=== PATIENT | male | born 1995 | race Caucasian/White ===

== ENCOUNTER 2017-09-24 10:23 | Inpatient (IN) | payer BC ==
[2017-09-24] MEDS: ONDANSETRON 4 MG INJ IV (13:52)
[2017-09-24] MEDS: SOD CHLORIDE 0.9% 1,000 ML IV ×3 (13:52→21:35)
[2017-09-24] MEDS: DICYCLOMINE 10 MG CAP PO (13:52)
[2017-09-24 13:58] LABS: ADD MAN DIFF? NO
[2017-09-24 14:02] LABS: WHITE BLOOD COUNT 10.6 10^3/ul (4.8-10.8)
[2017-09-24 14:02] LABS: BASOPHILS % 0.3 % (0.0-2.0); HEMATOCRIT 43.7 % (42.0-52.0); HEMOGLOBIN 15.2 g/dl (14.0-18.0); LYMPHOCYTES # 1.5 10^3/ul (0.8-2.9); LYMPHOCYTES % 14.5 % (18.0-55.0); MEAN CORPUSCULAR HEMOGLOBIN 29.4 pg (29.0-33.0); MEAN CORPUSCULAR HGB CONC 34.8 g/dl (32.0-37.0); MEAN CORPUSCULAR VOLUME 84.5 fl (72.0-104.0); MEAN PLATELET VOLUME 10.5 fl (7.4-10.4); MONOCYTE # 0.8 10^3/ul (0.3-0.9); MONOCYTES % 7.1 % (0.0-13.0); NEUTROPHIL # 8.2 10^3/ul (1.6-7.5); NEUTROPHILS % 77.6 % (30.0-74.0); PLATELET COUNT 187 10^3/UL (140-415); POSITIVE DIFF @See below; RED BLOOD COUNT 5.17 10^6/ul (4.70-6.10)
[2017-09-24 14:07] LABS: ADD UMIC YES; UR ASCORBIC ACID NEGATIVE (NEGATIVE); UR BILIRUBIN (Dip) NEGATIVE (NEGATIVE); UR BLOOD (Dip) 2+ mg/dL (NEGATIVE); UR CLARITY CLEAR (CLEAR); UR COLOR YELLOW (YELLOW); UR GLUCOSE (Dip) NEGATIVE (NEGATIVE); UR KETONES (Dip) TRACE mg/dL (NEGATIVE); UR LEUKOCYTE ESTERASE (Dip) NEGATIVE Leu/ul (NEGATIVE); UR MUCUS FEW /HPF (NONE SEEN); UR NITRITE (Dip) NEGATIVE (NEGATIVE); UR RBC 21 /HPF (0-5); UR SPECIFIC GRAVITY (Dip) 1.028 (1.003-1.030); UR TOTAL PROTEIN (Dip) 2+ mg/dl (NEGATIVE); UR UROBILINOGEN (Dip) NEGATIVE (NEGATIVE); UR WBC 3 /HPF (0-5)
[2017-09-24 14:23] LABS: ALANINE AMINOTRANSFERASE 32 IU/L (13-69); ALBUMIN 4.7 g/dl (3.3-4.9); ALKALINE PHOSPHATASE 48 IU/L (42-121); ANION GAP 17 (8-16); ASPARTATE AMINO TRANSFERASE 26 IU/L (15-46); BILIRUBIN,INDIRECT 0.2 mg/dl (0-1.1); BILIRUBIN,TOTAL 0.2 mg/dl (0.2-1.3); BLOOD UREA NITROGEN 9 mg/dl (7-20); CALCIUM 9.5 mg/dl (8.4-10.2); CARBON DIOXIDE 26 mmol/L (21-31); CHLORIDE 98 mmol/L (97-110); GLUCOSE 117 mg/dl (70-220); LIPASE 29 U/L (23-300); POTASSIUM 4.2 mmol/L (3.5-5.1); SODIUM 137 mmol/L (135-144); TOTAL PROTEIN 8.3 g/dl (6.1-8.1)
[2017-09-24 14:34] LABS: ANISOCYTOSIS 1+ (0-0); BAND NEUTROPHILS #M 3.1 10^3/ul (0.0-0.6); BAND NEUTROPHILS % (M) 30 % (0-10); EOSINOPHILS % (M) 1 % (0-7); GIANT THROMBO% (M) 1 % (0-0); LYMPHOCYTES #M 1.6 10^3/ul (0.8-2.9); LYMPHOCYTES % (M) 16 % (18-55); METAMYELOCYTES #M 0.2 10^3/ul (0.0-0.0); METAMYELOCYTES %M 2 % (0-0); MONOCYTE #M 0.4 10^3/ul (0.3-0.9); MONOCYTES % (M) 4 % (0-13); PLATELET ESTIMATE NORMAL; POLYCHROMASIA 1+ (0-0); SEGMENTED NEUTROPHILS (M) % 44 % (30-74); SMUDGE%M 4 % (0-0)
[2017-09-24] MEDS: ACETAMINOPHEN 325 MG TAB PO (15:38)
[2017-09-24 15:44] LABS: OCCULT BLOOD STOOL NEGATIVE (NEGATIVE)
[2017-09-24] MEDS: SODIUM CHLORIDE 0.9% 1L BAG IV* (16:17)
[2017-09-24] MEDS: PIPER-TAZO 3.375 GM IV (PMX) 50 ML IVPB (16:17)
[2017-09-24 16:35] LABS: LACTIC ACID 0.8 mmol/L (0.5-2.0)
[2017-09-24] MEDS ORDERED: ONDANSETRON 4 MG INJ IV ×2 (18:30→19:00)
[2017-09-24] MEDS ORDERED: ACETAMINOPHEN 325 MG TAB PO ×2 (18:30→19:00)
[2017-09-24] MEDS ORDERED: NACL 0.9% 3 ML SYG IV (19:00)
[2017-09-24] MEDS: metroNIDAZOLE 500 MG/NS (PMX) 100 ML IVPB (19:32)
[2017-09-24] MEDS: LACTOBACILLUS RHAMNOSUS CAP PO ×2 (21:00→21:34)
[2017-09-24 21:25] LABS: LACTIC ACID 1.1 mmol/L (0.5-2.0)
[2017-09-24] MEDS: KETOROLAC 30 MG INJ IV (21:34)
[2017-09-24] MEDS: CIPROFLOXACIN 400MG/D5W 200 ML IVPB (21:34)
[2017-09-24 23:09] LABS: LACTIC ACID 0.9 mmol/L (0.5-2.0)
[2017-09-25] MEDS: metroNIDAZOLE 500 MG/NS (PMX) 100 ML IVPB ×3 (00:35→11:56)
[2017-09-25 05:15] LABS: WHITE BLOOD COUNT 6.6 10^3/ul (4.8-10.8)
[2017-09-25 05:15] LABS: HEMATOCRIT 36.8 % (42.0-52.0); HEMOGLOBIN 12.7 g/dl (14.0-18.0); MEAN CORPUSCULAR HEMOGLOBIN 29.7 pg (29.0-33.0); MEAN CORPUSCULAR HGB CONC 34.5 g/dl (32.0-37.0); MEAN PLATELET VOLUME 11.1 fl (7.4-10.4); PLATELET COUNT 140 10^3/UL (140-415); POSITIVE DIFF @See below; RED BLOOD COUNT 4.28 10^6/ul (4.70-6.10); RED CELL DISTRIBUTION WIDTH 12.3 % (11.5-14.5)
[2017-09-25 05:19] LABS: ADD MAN DIFF? YES
[2017-09-25] MEDS: PANTOPRAZOLE (EC) 40 MG TAB PO (05:25)
[2017-09-25 05:35] LABS: ALBUMIN 3.5 g/dl (3.3-4.9); ANION GAP 15 (8-16); BLOOD UREA NITROGEN 7 mg/dl (7-20); CARBON DIOXIDE 27 mmol/L (21-31); CHLORIDE 105 mmol/L (97-110); CREATININE 1.07 mg/dl (0.61-1.24); GLUCOSE 103 mg/dl (70-220); MAGNESIUM 1.9 mg/dl (1.7-2.5); PHOSPHORUS 4.2 mg/dl (2.5-4.9); POTASSIUM 4.6 mmol/L (3.5-5.1); SODIUM 142 mmol/L (135-144)
[2017-09-25 08:46] LABS: ANISOCYTOSIS 2+ (0-0); BAND NEUTROPHILS #M 1.1 10^3/ul (0.0-0.6); BAND NEUTROPHILS % (M) 18 % (0-10); EOSINOPHILS % (M) 1 % (0-7); GIANT THROMBO% (M) 1 % (0-0); LYMPHOCYTES #M 2.9 10^3/ul (0.8-2.9); LYMPHOCYTES % (M) 44 % (18-55); MICROCYTOSIS 2+ (0-0); MONOCYTE #M 0.4 10^3/ul (0.3-0.9); MONOCYTES % (M) 7 % (0-13); PLATELET ESTIMATE DECREASED; SEG NEUT #M 2.1 10^3/ul (1.7-7.5); SEGMENTED NEUTROPHILS (M) % 30 % (30-74); SMUDGE%M 1 % (0-0)
[2017-09-25] MEDS: LACTOBACILLUS RHAMNOSUS CAP PO (09:05)
[2017-09-25] MEDS: KETOROLAC 30 MG INJ IV (10:52)
[2017-09-25] MEDS: SOD CHLORIDE 0.9% 1,000 ML IV (13:12)
== END 2017-09-25 18:19 | disposition home or self-care (01) | DRG 392 ==
LOC: FTE 10:23 → PP2 18:10
DX: K52.9 Noninfective gastroenteritis and colitis, unspecified (principal); K92.1 Melena
CPT/HCPCS: 36415; 74176; 80053; 80069; 81001; 82270; 83605; 83690; 83735; 85025; 86674; 87040; 87045; 87338; 96365; 96375; 99285-25